=== PATIENT | male | born 1975 | race Caucasian/White ===

== ENCOUNTER 2020-01-18 07:52 | Day surgery (SDC) | payer BC ==
[2020-01-16 15:08] VITALS: BMI 33.6
[~2020-01-18 07:52] MED LIST: LACTATED RINGERS 1,000 ML IV SCH
[2020-01-18 08:18] VITALS: RESP 16; TEMP 97
[2020-01-18] MEDS ORDERED: LIDOCAINE 1% INJ 10MG/ML (20 ML MDV) ONE (08:57)
[2020-01-18] MEDS ORDERED: PROPOFOL 10 MG/ML 20 ML VIAL IV ONE (08:57)
--- NOTE | 2020-01-18 09:10 | P.PCN ---
Date of Procedure: 01/18/20 Procedure(s) Performed: BRIEF HISTORY: Patient is a 44-year-old, pleasant, white male scheduled for an upper endoscopy for evaluation long-standing history of GERD and lately has been having nocturnal symptoms. He takes omeprazole as needed. PROCEDURE PERFORMED: Esophagogastroduodenoscopy with biopsy. PREOPERATIVE DIAGNOSIS: GERD. IV sedation per anesthesia. PROCEDURE: After informed consent was obtained, the patient was brought into the endoscopy unit. IV sedation was administered by Anesthesia under continuous monitoring. Initially the Olympus GIF-140 video endoscope was inserted into the mouth. Esophagus intubated without any difficulty. It was gradually advanced into the stomach and duodenum and carefully examined. The bulb and the second part of the duodenum appeared normal. The scope at this time was withdrawn to the stomach, adequately insufflated with air, and upon careful examination, mucosa of the antrum had mild gastritis and biopsies were done from this area., body, cardia and the fundus appeared normal. The scope was then withdrawn into the esophagus. The GE junction was located at 42 cm from the incisors. The esophagus appeared normal. There were no erosions or ulcerations seen, biopsies were done from the distal esophagus and the patient tolerated the procedure we ll. IMPRESSION: 1. Mild antral gastritis. 2. No evidence of esophagitis or Naranjo's esophagus. RECOMMENDATIONS: The findings of this examination were discussed with the patient as well as his family. He was advised to follow with the biopsy results. He was given her perception for omeprazole 20 mg daily to be taken half hour before dinnertime and follow antireflux measures.
[2020-01-18 09:32] VITALS: BP 115/78; PULSE 63
== END 2020-01-18 09:54 | disposition home or self-care (01) ==
LOC: ORWHC2ENDO 07:52
PROVIDERS: ATTEND Internal Medicine Gastroenterology
DX: K29.50 Unspecified chronic gastritis without bleeding (principal); K21.9 Gastro-esophageal reflux disease without esophagitis; E66.9 Obesity, unspecified; Z88.2 Allergy status to sulfonamides; Z88.1 Allergy status to other antibiotic agents; Z98.890 Other specified postprocedural states; Z68.33 Body mass index [BMI] 33.0-33.9, adult
CPT/HCPCS: 88305; 43239; J2001; J2704